=== PATIENT | female | born 1985 | race Caucasian/White ===

== ENCOUNTER 2017-12-13 16:55 | Inpatient (IN) ==
[2017-12-13 17:47] LABS: Apearance,Urine Slightly Hazy (Clear); Bacteria,Urine Occasional /HPF (Few); Bilirubin,Urine Negative (Negative); Blood, Urine Negative (Negative); Glucose,Urine (UA) Negative (Negative); Ketones,Urine Negative (Negative); Mucus,Urine Occasional /LPF (Occasional); Nitrite,Urine Negative (Negative); Protein,Urine >=500 MG/DL; RBC,Urine 1 /HPF (0-4); Squamous Epithelial Cell,Urine Occasional /HPF (0-10); Urine Color Yellow (Yellow); Urine Specific Gravity 1.014 (1.001-1.035); Urine Urobilinogen < 2.0 EU/DL (0.2-1.0); WBC,Urine 2 /HPF (0-6)
[2017-12-13] MEDS ORDERED: hydrALAZINE 20 MG/1 ML VIAL ONE (17:54)
[2017-12-13 17:58] LABS: Basophils # 0.1 10*3/uL (0.0-0.2); Basophils % 0.5 % (0.0-0.8); Eosinophils % 0.3 % (0.00-10.9); Immature Granulocytes % 0.5 %; Immature Granulocytes Absolute 0.06 #; Lymphocytes # 2.6 10*3/uL (1.4-4.0); Lymphocytes % 23.7 % (21.3-54.2); Mean Corpuscular HGB Conc 32.4 GM/DL (32-36); Mean Corpuscular Hemoglobin 26 PG (27-34); Mean Corpuscular Volume 80.8 FL (87-102); Mean Platelet Volume 9.8 FL (9.6-12.0); Monocytes # 0.5 10*3/uL (0.11-0.8); Monocytes % 4.2 % (1.7-12.7); Neutrophils # 7.7 10*3/uL (1.4-7.4); Neutrophils % 70.8 % (38.7-73.9); Platelet Count 186 T/CUMM (130-400); Red Blood Count 4.58 MC/CUMM (3.8-5.5); Red Cell Distribution Width 16.1 % (9.3-17.3); White Blood Count 10.9 T/CUMM (4-12)
[2017-12-13] MEDS ORDERED: MAGNESIUM SULF RIDER 4 GM in PREMIX 1 EACH IV ONE (17:58)
[2017-12-13] MEDS ORDERED: ONDANSETRON 4 MG/2 ML VIAL IV PRN ×2 (18:00→19:24)
[2017-12-13] MEDS ORDERED: BETAMETH SODIUM PHOS/ACETATE 30 MG/5 ML VIAL IM SCH (18:00)
[2017-12-13] MEDS ORDERED: hydrALAZINE 20 MG/1 ML VIAL IV ONE ×2 (18:08→19:08)
[2017-12-13 18:09] LABS: Fibrinogen Quant Value 505 MG% (200-400); INR 0.8; PT Patient Result 8.7 SECS; Partial Thromboplastin Time 25.9 SECS (0-40)
[2017-12-13] MEDS: LACTATED RINGERS 1,000 ML IV SCH ×2 (18:09)
[2017-12-13 18:21] LABS: Alanine Aminotransferase 36 U/L (13-56); Albumin 2.3 G/DL (3.4-5.0); Alkaline Phosphatase 108 U/L (45-117); Aspartate Amino Transferase 51 U/L (0-37); Bilirubin,Total < 0.39 MG/DL (0.2-1.0); Blood Urea Nitrogen 10 MG/DL (7-18); Calcium 8.2 MG/DL (8.5-10.1); Glucose 66 MG/DL (74-106); Osmolality,Calculated 273.5 MOS/KG (273-304); Potassium 5.2 MMOL/L (3.5-5.1); Sodium 139 MMOL/L (136-145); Total Protein 5.3 G/DL (6.4-8.3)
[2017-12-13] MEDS: MAGNESIUM SULF DRIP 40 GM/1,000 ML ML IV SCH (18:42)
[2017-12-13] MEDS ORDERED: FAMOTIDINE 20 MG/2 ML VIAL IV ONE (18:44)
[2017-12-13] MEDS ORDERED: CITRIC ACID/SODIUM CITRATE 30 ML UDCUP PO ONE (19:05)
[2017-12-13] MEDS ORDERED: OXYTOCIN/LR 20 UNIT/1,000 ML BAG IV ONE ×3 (19:10→21:00)
[2017-12-13] MEDS ORDERED: CLINDAMYCIN INJ 900 MG in PREMIX 1 EACH IV ONE (19:12)
[2017-12-13] MEDS ORDERED: DEXTROSE 50% 25 GM/50 ML VIAL IV ONE ×6 (19:13→19:19)
[2017-12-13] MEDS ORDERED: ACETAMINOPHEN 325 MG TABLET PO PRN (19:24)
[2017-12-13] MEDS ORDERED: RHO(D) IMMUNE GLOBULIN 300 MCG SYRINGE IM ONE (19:24)
[2017-12-13] MEDS ORDERED: LACTATED RINGERS 1,000 ML IV SCH (19:30)
[2017-12-13] MEDS ORDERED: TISSUE ADHESIVE 1 EACH APPLICATOR TOP ONE (19:37)
[2017-12-13 20:24] LABS: Cord Arterial Blood HCO3 18.2 MMOL/L
[2017-12-13 20:28] LABS: Cord Venous Blood HCO3 19.9 MMOL/L; Cord Venous Blood PCO2 48.1 MMHG; Cord Venous Blood PO2 17.2
[2017-12-13 21:07] LABS: HIV Antigen/Antibody Result Nonreactive (Nonreactive); Hepatitis B Surface Ag Quant < 0.10 Index; Hepatitis B Surface Ag Result Negative (Negative); Rubella Antibody IgG 67.9 IU/ML
[2017-12-13] MEDS ORDERED: PROPOFOL 200 MG/20 ML VIAL IV ONE (21:08)
[2017-12-13] MEDS ORDERED: MORPHINE 10 MG/10 ML VIAL ONE (21:09)
[2017-12-13] MEDS ORDERED: ONDANSETRON 4 MG/2 ML VIAL ONE (21:09)
[2017-12-13] MEDS ORDERED: BUPIVACAINE SPINAL 0.75% 2 ML AMP SPINAL ONE (21:09)
[2017-12-13] MEDS ORDERED: fentaNYL 100 MCG/2 ML VIAL ONE (21:09)
[2017-12-13] MEDS ORDERED: GLUCAGON 1 MG VIAL IM PRN (21:29)
[2017-12-13] MEDS ORDERED: DEXTROSE 50% 25 GM/50 ML VIAL IV PRN (21:29)
[2017-12-13] MEDS ORDERED: DEXTROSE IV SCH (21:55)
[2017-12-13] MEDS ORDERED: LACTATED RINGERS IV SCH (21:55)
[2017-12-14 02:20] LABS: Basophils % 0.3 % (0.0-0.8); Eosinophils % 0.1 % (0.00-10.9); Hematocrit 30.6 VOL% (35.7-47.0); Hemoglobin 10.4 GM/DL (12.0-16.0); Immature Granulocytes % 0.5 %; Immature Granulocytes Absolute 0.06 #; Lymphocytes # 2.6 10*3/uL (1.4-4.0); Lymphocytes % 21.4 % (21.3-54.2); Mean Corpuscular Hemoglobin 27 PG (27-34); Mean Corpuscular Volume 78.1 FL (87-102); Mean Platelet Volume 10.3 FL (9.6-12.0); Monocytes # 0.6 10*3/uL (0.11-0.8); Monocytes % 4.9 % (1.7-12.7); Neutrophils # 8.8 10*3/uL (1.4-7.4); Neutrophils % 72.8 % (38.7-73.9); Platelet Count 161 T/CUMM (130-400); Red Blood Count 3.92 MC/CUMM (3.8-5.5); Red Cell Distribution Width 16.1 % (9.3-17.3)
[2017-12-14 02:39] LABS: INR 0.8; PT Patient Result 8.7 SECS; Partial Thromboplastin Time 25.7 SECS (0-40)
[2017-12-14 02:41] LABS: Alanine Aminotransferase 37 U/L (13-56); Albumin 1.9 G/DL (3.4-5.0); Alkaline Phosphatase 90 U/L (45-117); Aspartate Amino Transferase 49 U/L (0-37); Bilirubin,Total < 0.39 MG/DL (0.2-1.0); Blood Urea Nitrogen 9 MG/DL (7-18); Calcium 7.6 MG/DL (8.5-10.1); Glucose 72 MG/DL (74-106); Osmolality,Calculated 272.7 MOS/KG (273-304); Potassium 4.2 MMOL/L (3.5-5.1); Sodium 138 MMOL/L (136-145); Total Protein 4.6 G/DL (6.4-8.3); Uric Acid 7.6 MG/DL (2.6-6.0)
[2017-12-14] MEDS: IBUPROFEN 800 MG TABLET PO PRN ×2 (03:02→16:51)
[2017-12-14] MEDS: LACTATED RINGERS 1,000 ML IV SCH ×3 (03:35→22:13)
[2017-12-14] MEDS: CLINDAMYCIN INJ 900 MG in PREMIX 1 EACH IV SCH ×2 (03:35→12:06)
[2017-12-14 07:23] LABS: Basophils % 0.3 % (0.0-0.8); Eosinophils % 0.2 % (0.00-10.9); Hematocrit 30.5 VOL% (35.7-47.0); Hemoglobin 9.9 GM/DL (12.0-16.0); Immature Granulocytes % 0.4 %; Immature Granulocytes Absolute 0.04 #; Lymphocytes # 2.8 10*3/uL (1.4-4.0); Lymphocytes % 25.3 % (21.3-54.2); Mean Corpuscular HGB Conc 32.5 GM/DL (32-36); Mean Corpuscular Hemoglobin 26 PG (27-34); Mean Corpuscular Volume 80.5 FL (87-102); Mean Platelet Volume 9.8 FL (9.6-12.0); Monocytes # 0.6 10*3/uL (0.11-0.8); Monocytes % 5.2 % (1.7-12.7); Neutrophils # 7.5 10*3/uL (1.4-7.4); Neutrophils % 68.6 % (38.7-73.9); Platelet Count 137 T/CUMM (130-400); Red Blood Count 3.79 MC/CUMM (3.8-5.5); Red Cell Distribution Width 16.3 % (9.3-17.3); White Blood Count 10.9 T/CUMM (4-12)
[2017-12-14 13:26] LABS: Basophils % 0.3 % (0.0-0.8); Eosinophils % 0.1 % (0.00-10.9); Hematocrit 33.1 VOL% (35.7-47.0); Hemoglobin 10.8 GM/DL (12.0-16.0); Immature Granulocytes % 0.5 %; Immature Granulocytes Absolute 0.07 #; Lymphocytes # 1.9 10*3/uL (1.4-4.0); Lymphocytes % 12.3 % (21.3-54.2); Mean Corpuscular HGB Conc 32.6 GM/DL (32-36); Mean Corpuscular Hemoglobin 26 PG (27-34); Mean Corpuscular Volume 80.5 FL (87-102); Mean Platelet Volume 9.5 FL (9.6-12.0); Monocytes # 0.5 10*3/uL (0.11-0.8); Monocytes % 3.2 % (1.7-12.7); Neutrophils # 12.9 10*3/uL (1.4-7.4); Neutrophils % 83.6 % (38.7-73.9); Platelet Count 145 T/CUMM (130-400); Red Blood Count 4.11 MC/CUMM (3.8-5.5); Red Cell Distribution Width 16.5 % (9.3-17.3); White Blood Count 15.4 T/CUMM (4-12)
[2017-12-14] MEDS: LABETALOL 200 MG TABLET PO SCH ×3 (13:47→21:43)
[2017-12-14] MEDS: MAGNESIUM SULF DRIP 40 GM/1,000 ML ML IV SCH ×2 (13:48→22:14)
[2017-12-14 13:58] LABS: Alanine Aminotransferase 43 U/L (13-56); Alkaline Phosphatase 101 U/L (45-117); Aspartate Amino Transferase 42 U/L (0-37); Bilirubin,Total < 0.39 MG/DL (0.2-1.0); Blood Urea Nitrogen 8 MG/DL (7-18); Calcium 6.9 MG/DL (8.5-10.1); Glucose 126 MG/DL (74-106); Osmolality,Calculated 265.4 MOS/KG (273-304); Potassium 4.2 MMOL/L (3.5-5.1); Sodium 133 MMOL/L (136-145); Total Protein 4.9 G/DL (6.4-8.3)
[2017-12-14] MEDS ORDERED: INSULIN ASPART PROTAMINE/ASPART 70/30 100 UNIT/ML SUBCUT SCH (18:30)
[2017-12-14] MEDS: INSULIN NPH 100 UNIT/ML SUBCUT SCH (19:38)
[2017-12-14] MEDS: INSULIN REGULAR 100 UNIT/ML SUBCUT SCH ×4 (19:38→22:15)
[2017-12-14] MEDS: MAGNESIUM HYDROXIDE SUSP 30 ML UDCUP PO PRN (20:51)
[2017-12-14] MEDS: SIMETHICONE CHEW 80 MG TABLET PO PRN (20:51)
[2017-12-14] MEDS: DOCUSATE SODIUM 100 MG CAPSULE PO SCH ×2 (20:52→21:42)
[2017-12-14] MEDS: MULTIVITAMIN (PRENATAL) TABLET PO SCH (21:43)
[2017-12-15] MEDS: IBUPROFEN 800 MG TABLET PO PRN ×2 (00:48→15:11)
[2017-12-15] MEDS ORDERED: INSULIN ASPART PROTAMINE/ASPART 70/30 100 UNIT/ML SUBCUT SCH (07:30)
[2017-12-15] MEDS: INSULIN REGULAR 100 UNIT/ML SUBCUT SCH ×7 (07:45→21:28)
[2017-12-15] MEDS: INSULIN NPH 100 UNIT/ML SUBCUT SCH ×2 (08:28→16:42)
[2017-12-15] MEDS: DOCUSATE SODIUM 100 MG CAPSULE PO SCH ×2 (09:46→21:24)
[2017-12-15] MEDS: LABETALOL 200 MG TABLET PO SCH ×3 (09:46→21:24)
[2017-12-15] MEDS: MULTIVITAMIN (PRENATAL) TABLET PO SCH (09:46)
[2017-12-15] MEDS ORDERED: BISACODYL 10 MG SUPP RECTAL PRN (15:14)
[2017-12-15] MEDS: SIMETHICONE CHEW 80 MG TABLET PO PRN (16:43)
[2017-12-15] MEDS: MAGNESIUM HYDROXIDE SUSP 30 ML UDCUP PO PRN (21:24)
[2017-12-16] MEDS: IBUPROFEN 800 MG TABLET PO PRN ×3 (00:35→18:43)
[2017-12-16] MEDS: INSULIN NPH 100 UNIT/ML SUBCUT SCH (07:50)
[2017-12-16] MEDS: INSULIN REGULAR 100 UNIT/ML SUBCUT SCH ×2 (07:50→07:51)
[2017-12-16] MEDS ORDERED: FUROSEMIDE 40 MG/4 ML VIAL IV ONE (08:44)
[2017-12-16] MEDS: DOCUSATE SODIUM 100 MG CAPSULE PO SCH ×2 (09:11→20:08)
[2017-12-16] MEDS: MULTIVITAMIN (PRENATAL) TABLET PO SCH (09:11)
[2017-12-16] MEDS: LABETALOL 100 MG TABLET PO SCH ×2 (09:12→16:34)
[2017-12-16] MEDS ORDERED: FUROSEMIDE 40 MG TABLET PO ONE (09:17)
[2017-12-16] MEDS: MAGNESIUM HYDROXIDE SUSP 30 ML UDCUP PO PRN (20:08)
[2017-12-17] MEDS: LABETALOL 100 MG TABLET PO SCH ×2 (00:34→08:18)
[2017-12-17] MEDS: IBUPROFEN 800 MG TABLET PO PRN (06:45)
[2017-12-17] MEDS: DOCUSATE SODIUM 100 MG CAPSULE PO SCH ×2 (08:17→22:02)
[2017-12-17] MEDS: MULTIVITAMIN (PRENATAL) TABLET PO SCH (08:17)
[2017-12-17] MEDS ORDERED: hydrALAZINE 10 MG TABLET PO ONE (11:40)
[2017-12-17] MEDS ORDERED: ONDANSETRON 4 MG TABLET PO PRN (11:40)
[2017-12-17] MEDS ORDERED: amLODIPine 5 MG TABLET PO SCH (13:00)
[2017-12-17] MEDS ORDERED: BUTALBITAL/ACETAMIN/CAFFEINE 50-325-40 MG TABLET PO PRN (13:02)
[2017-12-17] MEDS ORDERED: SUMAtriptan 6 MG/0.5 ML VIAL SUBCUT PRN (13:03)
[2017-12-17] MEDS ORDERED: LABETALOL 20 MG/4 ML SYRINGE IV PRN (15:21)
[2017-12-17] MEDS ORDERED: cloNIDine 0.1 MG TABLET PO PRN (15:36)
[2017-12-17] MEDS: GABAPENTIN 300 MG CAPSULE PO SCH (16:51)
[2017-12-17] MEDS ORDERED: hydrALAZINE 20 MG/1 ML VIAL IV ONE (17:53)
[2017-12-17] MEDS ORDERED: hydrALAZINE 20 MG/1 ML VIAL IV PRN ×2 (17:53→18:11)
[2017-12-17] MEDS ORDERED: LABETALOL 200 MG TABLET PO SCH (18:00)
[2017-12-17] MEDS ORDERED: LORazepam 2 MG/1 ML VIAL IV ONE (18:10)
[2017-12-17] MEDS ORDERED: LORazepam 2 MG/1 ML VIAL IV PRN (18:11)
[2017-12-17] MEDS: LABETALOL 200 MG TABLET PO SCH (22:02)
[2017-12-18 06:14] LABS: Basophils % 0.4 % (0.0-0.8); Eosinophils # 0.2 10*3/uL (0.0-0.87); Hematocrit 26.7 VOL% (35.7-47.0); Hemoglobin 8.7 GM/DL (12.0-16.0); Immature Granulocytes % 0.8 %; Immature Granulocytes Absolute 0.07 #; Lymphocytes # 2.8 10*3/uL (1.4-4.0); Lymphocytes % 30.9 % (21.3-54.2); Mean Corpuscular HGB Conc 32.6 GM/DL (32-36); Mean Corpuscular Hemoglobin 27 PG (27-34); Mean Corpuscular Volume 82.4 FL (87-102); Mean Platelet Volume 8.9 FL (9.6-12.0); Monocytes # 0.4 10*3/uL (0.11-0.8); Monocytes % 4.8 % (1.7-12.7); Neutrophils # 5.6 10*3/uL (1.4-7.4); Neutrophils % 61.1 % (38.7-73.9); Platelet Count 219 T/CUMM (130-400); Red Blood Count 3.24 MC/CUMM (3.8-5.5); Red Cell Distribution Width 16.5 % (9.3-17.3); White Blood Count 9.1 T/CUMM (4-12)
[2017-12-18] MEDS: LABETALOL 200 MG TABLET PO SCH ×3 (06:14→22:18)
[2017-12-18] MEDS: LEVOTHYROXINE 100 MCG TABLET PO SCH (06:14)
[2017-12-18 06:53] LABS: Bilirubin,Total 0.5 MG/DL (0.2-1.0); Calcium 8.2 MG/DL (8.5-10.1); Potassium 4.3 MMOL/L (3.5-5.1)
[2017-12-18 07:01] LABS: Free T4 (Free Thyroxine) 0.99 NG/DL (0.76-1.46); Thyroid Stimulating Hormone 11.6 uIU/ml (0.358-3.74)
[2017-12-18] MEDS: MULTIVITAMIN (PRENATAL) TABLET PO SCH (09:43)
[2017-12-18] MEDS: DOCUSATE SODIUM 100 MG CAPSULE PO SCH ×2 (09:43→21:15)
[2017-12-18] MEDS: amLODIPine 5 MG TABLET PO SCH (09:44)
[2017-12-18] MEDS: FUROSEMIDE 20 MG/2 ML VIAL IV SCH (09:44)
[2017-12-18] MEDS: GABAPENTIN 300 MG CAPSULE PO SCH (09:53)
[2017-12-18] MEDS: hydrALAZINE 25 MG TABLET PO SCH ×3 (13:32→21:15)
[2017-12-19] MEDS: LABETALOL 200 MG TABLET PO SCH (06:00)
[2017-12-19] MEDS: LEVOTHYROXINE 100 MCG TABLET PO SCH (06:00)
[2017-12-19 07:23] VITALS: BP 141/86
[2017-12-19] MEDS: amLODIPine 5 MG TABLET PO SCH (09:17)
[2017-12-19] MEDS: hydrALAZINE 25 MG TABLET PO SCH (09:17)
[2017-12-19] MEDS: MULTIVITAMIN (PRENATAL) TABLET PO SCH (09:17)
[2017-12-19] MEDS: GABAPENTIN 300 MG CAPSULE PO SCH (09:17)
[2017-12-19] MEDS: DOCUSATE SODIUM 100 MG CAPSULE PO SCH (09:19)
[2017-12-19] MEDS: FUROSEMIDE 20 MG/2 ML VIAL IV SCH (09:47)
== END 2017-12-19 15:55 | disposition home or self-care (01) | DRG 540 ==
LOC: N.LDOUT 16:55 → N.LD 16:58 → N.OB 12-14 19:55
PROVIDERS: ADMIT Specialist; ATTEND Specialist
PROC: LDCSECT (ICD-10-PCS; 2017-12-13 19:00)